=== PATIENT | male | born 1950 | race Caucasian/White ===

== ENCOUNTER 2016-12-20 15:36 | Outpatient (CLI) | payer OTHER ==
[~2016-12-20] VITALS: Ht 165.1 cm; Wt 75.5 kg
[2016-12-20 15:37] VITALS: BP_SYST 188; BP_SYST 199; BP_DIAS 88; BP_DIAS 95; PULSE 75; RESP 18; Ht 165.1 cm; Wt 75.5 kg
[2016-12-20] MEDS ORDERED: METO-429 PO (15:52)
[2016-12-20] MEDS ORDERED: SEVE800T7 PO (15:52)
[2016-12-20] MEDS ORDERED: AMLO-147 PO (15:52)
[2016-12-20] MEDS ORDERED: SENN-53 PO (15:52)
[2016-12-20] MEDS ORDERED: GLIM2TAB PO (15:52)
[2016-12-20] MEDS ORDERED: ATOR40TA68 PO (15:52)
[2016-12-20] MEDS ORDERED: ISOS60TA PO (15:52)
[2016-12-20] MEDS ORDERED: BUME2TAB18 PO (15:52)
[2016-12-20] MEDS ORDERED: HYDR-906 PO (15:52)
[2016-12-20] MEDS ORDERED: ALLO100T PO (15:52)
[2016-12-20] MEDS ORDERED: FER325 PO (15:52)
[2016-12-20] MEDS ORDERED: ASPI-664 PO (15:52)
[2016-12-20] MEDS ORDERED: GLIP2.5T3 PO (15:52)
[2016-12-20] MEDS ORDERED: HYDR-3671 PO (15:52)
[2016-12-20] MEDS ORDERED: DOCU-159 PO (15:52)
--- NOTE | 2016-12-20 16:12 | PN ---
Date/Time of Note Date/Time of Note DATE: 12/20/16 TIME: 16:06 Outpatient Progress Note Chief Complaint CHF/hypertension/ASHD/DM/renal insufficiency/anemia/gout HPI CHF/patient was recently hospitalized, patient denies any chest pain, no shortness of breath, patient has bilateral ankle edema, no wheezing, no PND orthopnea, Hypertension/no headache or dizziness, no nausea or vomiting, no impaired vision , ASHD/no chest pain, no PND orthopnea, patient had a recently open-heart surgery, Diabetes/upper lid hypoglycemia, patient is not taking any medication, Renal insufficiency/no nausea or vomiting no pruritus, not on dialysis, Anemia/ no hematemesis melena, no ecchymosis or bruises, Review of Systems Const: No Fever, no chills, no Wt. loss, no Fatigue, normal appetite, no diaphoresis. Eyes: No pain, no discharge, no redness, no visual change, no foreign body. ENT: No pain, no bleeding, no congestion, no sore throat, no dysphagia, no discharge or rhinitis. Lymph: No adenopathy, no tender nodes, no lymphedema. Resp: No SOB, no cough, no sputum, no wheezing, no chest pain. CV: No chest pain, no palpitaions, no JAMA, no PND, no edema. GI: Normal appetite, no pain, no nausea, no vomiting, no diarrhea, no blood, no constipation. : No frequency, no urgency, no dysuria, no hematuria, no flank pain, no discharge, no bleeding. Musc: No bone/joint pain, no back pain, no neck pain, no knee pain, no restricted ROM. Skin: No rash, no skin lesions, no erythema, no laceration, no bruising, no pruritus. Neuro: No BENJAMIN, no dizziness, no syncope, no seizure, no focal-weakness. Endo: No polyuria, no polydypsia, no dry-skin, no temp-intolerance. Psych: No hallucinations, no depression, no anxiety, no suicidal ideation. Ext: Bilateral ankle, no pain, no ulcer, no weakness. Physical Exam Vital Signs Date Time Temp Pulse Resp B/P Pulse Ox O2 Delivery O2 Flow Rate FiO2 12/20/16 15:37 98.6 75 18 199/95 97 Room Air 188/88 General Appearance: A 66 year-old male who appears well-developed, well- nourished, in no acute distress. HEENT: Head normocephalic, atraumatic. Pupils equal, round, reactive to light and accommodate. Sclerae are no jaundice. Nasal turbinates pink without erythema or nasal discharge. Mucous membranes pink and moist without lesions. Oropharynx clear without any exudate or discharge. NECK: Supple. Trachea midline, No thyromegaly, No cervical lymphadenopathy, No mass, No carotid bruits, No JVD, Carotid pulses 2+ bilaterally. PULMONARY: Clear to auscultaion bilaterally, No retractions, Chest expansion symmetric bilaterally, no rales, no ronchi, no dulness on percussion. CARDIAC: Normal SI and S2, Regular rate and rythm, no murmur, gallop, or rub. GASTROINTESTINAL: Abdomen is soft, non-tender, Non Rigid, No distention, Positive bowel sounds x4 quadrants, Liver normal. SKIN: Warm, dry, no rash, no bruise, no echmosis. EXTREMITIES: Bilateral lower extremities edema, no phlabitus, pulse palpable, no contracture. MUSCULOSKELETAL: Spine Normal, Non-tender, Normal range of motion, No swelling, no deformity, no clubbing, or cyanosis, the patient has no edema to bilateral lower extremities, dorsalis pedis pulses palpable bilaterally. NEUROLOGIC: The patient is awake, alert, oriented, responding to yes/no questions appropriately, moving all extremities, cranial nerve intact, normal strenght, normal power, normal coordination, normal gait. Allergies Coded Allergies: No Known Drug Allergies (Verified Allergy, Unknown, 12/20/16) H ASHD/CHF/hypertension/diabetes/renal insufficiency/anemia/gout Status post coronary artery bypass Social Hx No smoking or drinking, Family Hx Noncontributory Assessment/Plan Impression CHF/hypertension/ASHD/diabetes/renal insufficiency/anemia/gout Plan Patient education done, patient showed up with 3 medication only, patient is taking Lipitor 1 blood pressure medication and aspirin, patient is not taking any diabetes medication, patient is not taking any diuretics, and patient is not taking any other blood pressure medication, I have seen the discharge medication, and I will prescribe remaining medication , patient also advised to check the blood pressure and blood sugar more frequently, CBC BMP in 2 weeks, Patient patient need to follow with the primary care physician, patient to take blood pressure reading and sugar reading to the family physician, Patient encouraged to follow with the cardiology also, and Any chest pain or shortness of breath go to the ER, Medications Home Meds Reported Medications Sevelamer Carbonate* (Renvela*) 800 Mg Tablet, 0.8 GM PO WITH MEALS, TAB 12/20/16 Sennosides* (Senna Lax*) 8.6 Mg Tablet, 1 TAB PO BID for CONSTIPATION, TAB 12/20/16 Metoprolol Tartrate* (Lopressor*) 50 Mg Tab, 50 MG PO BID, #60 TAB 12/20/16 Isosorbide Mononitrate* (Isosorbide Mononitrate*) 60 Mg Tab.er.24h, 60 MG PO DAILY, TAB 12/20/16 Hydrocodone/Acetaminophen ([place] 5-325 Tablet) 1 Each Tablet, 1-2 EACH PO Q8 for PAIN LEVEL 4-7, TAB 12/20/16 Hydralazine Hcl* (Hydralazine Hcl*) 25 Mg Tab, 25 MG PO Q8, #90 TAB 12/20/16 Glipizide* (Glipizide ER*) 2.5 Mg Tab.er.24, 2.5 MG PO DAILY, TAB 12/20/16 Glimepiride* (Glimepiride*) 2 Mg Tablet, 2 MG PO WITH BREAKFAST, TAB 12/20/16 Docusate Sodium* (Docusate Sodium*) 100 Mg Capsule, 100 MG PO BID for CONSTIPATION, #60 CAP 12/20/16 Ferrous Sulfate* (Ferrous Sulfate*) 325 Mg Tabec, 325 MG PO BID, TAB 12/20/16 Bumetanide* (Bumetanide*) 2 Mg Tablet, 2 MG PO BID, TAB 12/20/16 Atorvastatin* (Atorvastatin*) 40 Mg Tablet, 40 MG PO QHS, #30 TAB 12/20/16 Aspirin (Low Dose Aspirin) 81 Mg Tablet.dr, 81 MG PO DAILY, #30 TAB 12/20/16 Amlodipine Besylate* (Amlodipine Besylate*) 10 Mg Tablet, 10 MG PO DAILY, #30 TAB 12/20/16 Allopurinol* (Allopurinol*) 100 Mg Tablet, 100 MG PO DAILY, TAB 12/20/16 ANTIONE MACKEY MD Dec 20, 2016 16:12
== END 2016-12-20 17:00 | disposition home or self-care (01) ==
LOC: DCC 15:36
PROVIDERS: ATTEND Internal Medicine
DX: I50.9 Heart failure, unspecified (principal); I10 Essential (primary) hypertension; I25.10 Atherosclerotic heart disease of native coronary artery without angina pectoris; E11.9 Type 2 diabetes mellitus without complications; N28.9 Disorder of kidney and ureter, unspecified; D64.9 Anemia, unspecified; M10.9 Gout, unspecified; Z95.1 Presence of aortocoronary bypass graft; Z79.84 Long term (current) use of oral hypoglycemic drugs; Z79.82 Long term (current) use of aspirin
CPT/HCPCS: G0463